=== PATIENT | female | born 2000 | race Caucasian/White ===

== ENCOUNTER 2021-12-08 17:21 | Emergency (ER) | payer BC ==
[~2021-12-08] VITALS: Ht 162.6 cm; Wt 72.6 kg
[2021-12-08 17:53] VITALS: BP_SYST 115
[2021-12-08 18:27] LABS: MEAN CORPUSCULAR HEMOGLOBIN 28 pg (27-31); WHITE BLOOD COUNT (AUTO) 9.2 K/uL (4.8-10.8)
[2021-12-08 18:33] LABS: BASOPHILS # (AUTO) 0.1 K/uL (0.0-0.2); EOSINOPHILS # (AUTO) 0.1 K/uL (0.0-0.4); EOSINOPHILS % (AUTO) 1.2 % (0.0-4.0); HEMATOCRIT 35.5 % (36-48); LYMPHOCYTES # (AUTO) 3.4 K/uL (1.0-5.5); LYMPHOCYTES % (AUTO) 37.1 % (20.5-51.5); MEAN CORPUSCULAR HGB CONC 34 % (32-36); MEAN CORPUSCULAR VOLUME 84 fL (79.0-98.0); MONOCYTES # (AUTO) 0.5 K/uL (0.0-1.0); MONOCYTES % (AUTO) 5.1 % (1.7-9.3); NEUTROPHILS # (AUTO) 5.1 K/uL (1.8-7.7); NEUTROPHILS % (AUTO) 55.6 % (40.0-70.0); PLATELET COUNT (AUTO) 281 K/uL (130-430); RED BLOOD CELL COUNT(AUTO) 4.24 MIL/uL (4.2-6.2); RED CELL DISTRIBUTION WIDTH 13.7 % (9.0-15.0)
[2021-12-08 18:38] LABS: POTASSIUM 3.6 mmol/L (3.5-5.1)
[2021-12-08 19:10] LABS: ALBUMIN 3.5 g/dL (3.4-4.8); CREATININE 0.68 mg/dL (0.55-1.30); TOTAL BILIRUBIN 0.1 mg/dL (0.0-1.0)
--- NOTE | 2021-12-08 19:44 | NUR ---
Patient to ER bed 01 to gown for evaluation. Side rails up.
--- NOTE | 2021-12-08 20:16 | NUR ---
21 YR OLD AOX4, , AMBULATORY FEMALE WITH COMPLAINT OF UPPER ABDOMINAL PAIN WITH NAUSEA AND VOMITING. PT REPORTS BEING 8 WEEKS PREGANANT WITH FIRST CHILD. PT DENIES CHEST PAIN, DIARRHEA, OR SOB. PT DENIES ANY OTHER HEALTH CONDITIONS. AWAITING MD EVALUATION. WILL MONITOR NEEDED
[2021-12-08 20:40] VITALS: BP_SYST 118
[2021-12-08 21:14] LABS: BILIRUBIN,URINE NEGATIVE (NEGATIVE); BLOOD, URINE NEGATIVE (NEGATIVE); CLARITY/URINE CLEAR (CLEAR); COLOR,URINE YELLOW (YELLOW); GLUCOSE,URINE NEGATIVE (NEGATIVE); KETONES,URINE NEGATIVE (NEGATIVE); LEUKOCYTE ESTERASE ,URINE NEGATIVE (NEGATIVE); NITRITE, URINE NEGATIVE (NEGATIVE); PROTEIN URINE NEGATIVE (NEGATIVE); UROBILINOGEN,URINE 0.2 (0.2-1.0)
--- NOTE | 2021-12-08 21:15 | NUR ---
BLACK Burks at bedside examining patient.
[2021-12-08] MEDS ORDERED: ONDA-8 TL (21:24)
[2021-12-08] MEDS ORDERED: ANT30 PO (21:25)
[2021-12-08] MEDS ORDERED: MAG HYDROX/AL HYDROX/SIMETH 30 ML, LIDOCAINE VISCOUS 2% 15ML (PO) 15 ML, DICYCLOMINE HC... PO ONE ×3 (21:30)
--- NOTE | 2021-12-08 22:13 | NUR ---
AT THE BEDSIDE FOR RE EVALUATION OF ABDOMINAL PAIN. PT REPORTS PAIN RELIEF SINCE ADMINISTARTION OF GI COCKTAIL. MD PROVIDED PT WITH HOMECARE EDUCATION, AND PRESCRIPTION. PT ADVISED TO FOLLOW UP WITH OBGYN OR PRIMARY CARE DOCTOR FOR ANY CONTINUED SYMPTOMS. PT DISCHARGED IN STABLE CONDITON AMBULATORY, WITH ALL BELONGINGS, ACCOMPANIED BY BOYFRIEND.
== END 2021-12-08 22:18 | disposition home or self-care (01) ==
LOC: SED 17:21
DX: O26.891 Other specified pregnancy related conditions, first trimester (principal); K29.70 Gastritis, unspecified, without bleeding; Z88.0 Allergy status to penicillin; Z79.899 Other long term (current) drug therapy; Z3A.01 Less than 8 weeks gestation of pregnancy
CPT/HCPCS: 36415; 76700; 76805; 80053; 81003; 83690; 84702; 85025; 99284; J2001

== ENCOUNTER 2023-08-04 14:49 | Emergency (ER) | payer BC ==
[~2023-08-04] VITALS: Ht 160 cm; Wt 72.6 kg
[~2023-08-04 14:49] MED LIST: ANT30 PO; ONDA-8 TL
[2023-08-04 15:00] VITALS: BP_SYST 112; PULSE 58; RESP 18; TEMP 98.2; O2SAT 98
[2023-08-04 15:45] LABS: BASOPHILS # (AUTO) 0.1 K/uL (0.0-0.2); BASOPHILS % (AUTO) 0.6 % (0.0-2.0); EOSINOPHILS # (AUTO) 0.4 K/uL (0.0-0.4); EOSINOPHILS % (AUTO) 4.2 % (0.0-4.0); HEMATOCRIT 38.9 % (36-48); HEMOGLOBIN 12.7 g/dL (12.0-16.0); LYMPHOCYTES % (AUTO) 33.9 % (20.5-51.5); MEAN CORPUSCULAR HEMOGLOBIN 28 pg (27-31); MEAN CORPUSCULAR HGB CONC 33 % (32-36); MEAN CORPUSCULAR VOLUME 85 fL (79.0-98.0); MONOCYTES # (AUTO) 0.6 K/uL (0.0-1.0); MONOCYTES % (AUTO) 6.3 % (1.7-9.3); NEUTROPHILS # (AUTO) 4.9 K/uL (1.8-7.7); PLATELET COUNT (AUTO) 283 K/uL (130-430); RED BLOOD CELL COUNT(AUTO) 4.57 MIL/uL (4.2-6.2); RED CELL DISTRIBUTION WIDTH 13.7 % (9.0-15.0); WHITE BLOOD COUNT (AUTO) 8.8 K/uL (4.8-10.8)
[2023-08-04] MEDS ORDERED: KETOROLAC TROMETHAMINE 30 MG VIAL IM ONE (15:45)
[2023-08-04 15:59] LABS: CALCIUM 9.5 mg/dL (8.4-11.0); CREATININE 0.81 mg/dL (0.55-1.30); POTASSIUM 3.6 mmol/L (3.5-5.1)
[2023-08-04 16:03] LABS: TOTAL BILIRUBIN 0.3 mg/dL (0.0-1.0); TOTAL PROTEIN, SERUM 7.9 g/dL (6.4-8.3)
[2023-08-04 16:39] LABS: BILIRUBIN,URINE NEGATIVE (NEGATIVE); BLOOD, URINE NEGATIVE (NEGATIVE); CLARITY/URINE CLEAR (CLEAR); COLOR,URINE YELLOW (YELLOW); GLUCOSE,URINE NEGATIVE (NEGATIVE); KETONES,URINE NEGATIVE (NEGATIVE); LEUKOCYTE ESTERASE ,URINE NEGATIVE (NEGATIVE); NITRITE, URINE NEGATIVE (NEGATIVE); PROTEIN URINE NEGATIVE (NEGATIVE); UROBILINOGEN,URINE 0.2 (0.2-1.0)
[2023-08-04 17:45] VITALS: BP_SYST 125; PULSE 77; RESP 15; TEMP 97.5; O2SAT 98
== END 2023-08-04 17:42 | disposition home or self-care (01) ==
LOC: SED 14:49
DX: I88.0 Nonspecific mesenteric lymphadenitis (principal); Z88.0 Allergy status to penicillin; Z79.899 Other long term (current) drug therapy
CPT/HCPCS: 36415; 76376; 76856-TC; 80053; 81001; 81003; 81025; 83605; 83690; 85025; 87040; 99284